=== PATIENT | male | born 1970 | race African-American/Black ===

== ENCOUNTER 2018-09-12 11:52 | Emergency (ER) | payer OTHER ==
[2018-09-12] MEDS ORDERED: DIPHTH/TET/ACEL PERTUSS (ADULT) 0.5 ML VIAL IM* (12:30)
[2018-09-12] MEDS: LIDOCAINE 1% (MDV) 20 ML INJ INJ (12:30)
[2018-09-12] MEDS: IBUPROFEN 600 MG TAB PO (13:27)
== END 2018-09-12 13:38 | disposition home or self-care (01) ==
LOC: FTE 11:52
DX: S61.411A Laceration without foreign body of right hand, initial encounter (principal); I10 Essential (primary) hypertension; W20.8XXA Other cause of strike by thrown, projected or falling object, initial encounter; Y92.9 Unspecified place or not applicable
CPT/HCPCS: 12002; 73130-RT; 99283-25